=== PATIENT | female | born 2000 | race African-American/Black ===

== ENCOUNTER 2021-08-20 07:12 | Emergency (ER) | payer BC, SELFPAY ==
--- NOTE | ~2021-08-20 | CT_ITS ---
EXAMINATION: CTA chest PE abdomen pel DATE: 08/20/2021 09:18 INDICATION: Chest pain. Fever. Elevated d-dimer. TECHNIQUE: Computed tomography angiography (CTA) of the chest was performed with 100 mL Omnipaque-350 intravenous contrast timed to evaluate the pulmonary arteries. Coronal maximum intensity projection 3D-reconstructions were created by the technologist. Automated exposure control and iterative reconst ruction technique were employed. Exam dose: 1562.98 mGy-cm total exam DLP. COMPARISON: 08/20/2021 portable AP chest FINDINGS: There is diagnostic contrast enhancement of the pulmonary arteries and no evidence of pulmo nary embolism. No thoracic aortic aneurysm or dissection. No hilar or mediastinal mass lesion or lymphadenopathy. Heart size is within normal limits. No pericardial or pleural effusion. No pulmonary infiltrate or consolidation or pulmonary mass lesion. Included skeletal structures are unremarkable. IMPRESSION: Negative examination Reviewed, dictated and finalized at [facility]. Reviewed, dictated and finalized at location B. IMPRESSION: Negative examination
--- NOTE | ~2021-08-20 | XR_ITS ---
EXAMINATION: XR chest 1V portable EXAM DATE: 08/20/2021 07:58 INDICATION: Fever, headache, bodyaches. TECHNIQUE: Portable AP frontal chest x-ray was obtained. There is no prior study for comparison. FINDINGS: The lungs are clear. There are no pleural effusions. Cardiac silhouette is prominent for age but magnified on this AP technique. There is no pneumothorax suspected. The bones and soft tis sues are unremarkable. IMPRESSION: No acute cardiopulmonary findings. Reviewed, dictated and finalized at location A.
--- NOTE | ~2021-08-20 | US_ITS ---
EXAMINATION: US pelvic complete w TV EXAM DATE: 08/20/2021 11:43 INDICATION: Right adnexal pain rt adnexal pain. TECHNIQUE: Pelvic transabdominal and transvaginal sonogram was performed. There are multiple graysca le and Doppler images available for interpretation. Correlation is made to CT abdomen pelvis earlier same date. FINDINGS: Uterus measures 11.2 x 6.9 x 6.2 cm, with IUD located within the endometrial canal in the lower uterine segment. Endometrial stripe measures 7 mm, within normal limits. There is small free p elvic fluid. Right adnexa: The ovary measures 5.8 x 4.6 x 2.8 cm, with anechoic lesion consistent with the dominan t follicle measuring 3 cm. Ovarian vascular flow confirmed. Left adnexa: The ovary measures 3.4 x 3.4 x 1.8 cm and is morphologically normal. Ovarian vascular fl ow confirmed. IMPRESSION: 1. IUD in the lower uterine segment of endometrial canal. 2. Right ovarian anechoic lesion likely the dominant follicle. Low resistance arterial flow confirme d. Reviewed, dictated and finalized at location A. IMPRESSION: 1. IUD in the lower uterine segment of endometrial canal. 2. Right ovarian anechoic lesion likely the dominant follicle. Low resistance arterial flow confirmed.
[2021-08-20 07:20] VITALS: BP 135/93; PULSE 106; RESP 31; TEMP 37.2; O2SAT 99
--- NOTE | 2021-08-20 07:52 | ED.FEVER ---
HPI - Fever General Chief Complaint: Fever Stated Complaint: chills/hoffman/fever Time Seen by Provider: 08/20/21 07:23 Source: patient and RN notes reviewed Mode of arrival: ambulatory Limitations: no limitations History of Present Illness HPI Narrative: This is a 20 year old female who presents for evaluation of fever. Patient states last night she developed fever, chills, body aches , sore throat and headache. She had fever 101.7 at home. She has been taking Tylenol for her fever. She denies sick contacts. She denies nausea, vomiting, diarrhea, urinary symptoms, cough or shortness of breath. She had a c section 6 weeks ago . She denies drainage from her incision. She states she is having lower abdominal pain that is worse on her right side for 1 week. She denies abnormal vaginal discharge or odor. She is currently on her menstrual cycle She has not been vaccinated for covid. MD elicited complaint: fever Related Data Allergies Allergy/AdvReac Type Severity Reaction Status Date / Time No Known Allergies Allergy Unverified 08/18/17 09:57 Review of Systems Review of Systems: All systems reviewed & are unremarkable except as noted in HPI and below Constitutional: Constitutional: Reports chills and Reports fever(s) ENT: Reports sore throat Cardiovascular: Cardiovascular: Denies chest pain and Denies rapid heart rate Respiratory: Respiratory: Denies cough and Denies dyspnea Gastrointestinal: Gastrointestinal: Reports abdominal pain, Denies diarrhea, Reports nausea and Denies vomiting Genitourinary: Genitourinary: Denies nocturia, Denies dysuria and Denies flank pain Neurologic: Reports headache(s) [facility] Past Medical History Medical History (Updated 08/20/21 @ 12:39 by Samantha Quiroz MD) Patient denies medical problems Surgical History Surgical History (Updated 08/20/21 @ 07:53 by Samantha Quiorz MD) H/O section Exam Const: General: no acute distress and alert Orientation/consciousness: patient oriented x3 HENMT: Head: normocephalic and atraumatic Ears: hearing grossly normal bilaterally and TM's normal bilaterally Face and sinus: face symmetric Mouth: Yes Normal oral and palatal mucosa present, Yes lip normal, Yes oropharynx normal and Yes moist mucous membranes Throat: uvula midline and abnormal tonsil bilateral hypertrophy Eyes: Pupils: Equal, round and reactive pupils present EOM: EOMs intact bilaterally Neck: Neck: normal visual inspection, no lymphadenopathy and no meningeal signs Chest: Chest palpation & inspection: normal inspection of the chest Resp: Effort & Inspection: normal respiratory effort and no retractions Auscultation: clear to auscultation bilaterally Cardio: Rate: tachycardic Rhythm: regular rhythm Heart sounds: no murmurs Peripheral pulses: Peripheral pulses 2+ throughout GI: GI Palp: Yes Soft to palpation, Yes Tenderness to palpation present (GI) and No Guarding due to palpation present (GI) Auscultation: normal bowel sounds Other: low transverse c section incision that is healed, no drainage, no erthema, no opening Skin: General skin exam: normal color Rashes: no rashes Neuro: General: patient oriented x3, moves all extremities and CN's II-XI intact bilaterally Gait exam (Neuro): Normal gait present Extrem: General: normal to inspection Psych: Mental Status: mental status grossly normal Affect: normal affect Course Reevaluation(s) Reevaluation #1: PAtient states she feels better. Her headache resolved. I doubt she has bacterial meningitis. She has not signs of menigmus. She also denies malodorous vaginal discharge to suggest endometritis. She was found to have UTI so will start on antibiotics. She is also pending COVID results. Date: 08/20/21 Time: 12:33 Vital Signs Vital signs: Vital Signs Temperature 99.0 F 08/20/21 07:20 Pulse Rate 106 H 08/20/21 07:20 Respiratory Rate 31 H 08/20/21 07:20 Blood Pressure 135/9
[2021-08-20] MEDS: SODIUM CHLORIDE 0.9% IV 1,000 ML 999 ML IV CONT (08:08)
[2021-08-20] MEDS: KETOROLAC 30 MG/ML VIAL (*BKC) IV PUSH (08:08)
[2021-08-20 08:15] LABS: Basophils Absolute Auto 0.1 K/mm3 (0.0-0.1); Basophils Percent Auto 0.4 % (0.2-1.2); Eosinophils Absolute Auto 0.1 K/mm3 (0-0.3); Eosinophils Percent Auto 0.4 % (0-4.4); Hematocrit 33.9 % (37.0-47.0); Hemoglobin 10.9 g/dL (12.0-15.0); Immature Granulocyte Absolute 0.07 K/mm3 (0.00-0.031); Immature Granulocyte Percent A 0.5 % (0-0.5); Immature Platelet Fraction Pct 5.2 % (0.9-11.2); Lymphocytes Absolute Auto 0.84 K/mm3 (0.9-3.2); Mean Corpuscular HGB Conc 32.2 g/dl (32-36); Mean Corpuscular Hemoglobin 24.4 pg (26-34); Mean Corpuscular Volume 75.8 fl (80-100); Mean Platelet Volume 11.2 fl (7.4-10.4); Monocytes Absolute Auto 0.6 K/mm3 (0.1-0.6); Monocytes Percent Auto 4.4 % (2.6-8.5); Neutrophils Absolute Auto 12.4 K/mm3 (1.3-6.7); Neutrophils Percent Auto 88.3 % (45.5-73.1); Platelet Count Result 283 k/mm3 (150-375); Red Blood Count 4.47 M/mm3 (4.2-5.4); Red Cell Distribution Width 17.2 % (11.5-14.5)
--- NOTE | 2021-08-20 08:16 | PC.NURSE ---
isabell, Neal jacob
[2021-08-20 08:30] LABS: Alanine Aminotransferase 22 U/L (4-35); Alkaline Phosphatase 130 U/L (38-126); Anion Gap 12 mmol/L (8-16); Aspartate Amino Transferase 24 U/L (14-36); Bilirubin,Total 0.6 mg/dL (0.2-1.3); Blood Urea Nitrogen 12 mg/dL (7-17); CRP 3.1 mg/dL (<1.0); Calcium 9.5 mg/dL (8.4-10.2); Carbon Dioxide 24 mmol/L (22-30); Chloride 103 mmol/L (98-107); Estimated CRCL calculation 103 ml/min; Estimated Glomerular Filt Rate > 60; Glucose 125 mg/dL (65-110); Potassium 3.9 mmol/L (3.4-5.0); Sodium 139 mmol/L (137-145)
[2021-08-20 08:35] LABS: D Dimer 1.19 ug/mL (<0.48)
[2021-08-20 08:37] LABS: Add Urine Microscopic? YES; Appearance Urine Cloudy (Clear); Bacteria Urine Trace /hpf; Bilirubin Urine Negative (Negative); Blood Urine 3+ (Negative); Color Urine Yellow (Yellow); Glucose Urine UA Negative (Negative); Ketones Urine Negative (Negative); Leukocyte Esterase Ur 1+ LEU/UL (Negative); Nitrate Urine Negative (Negative); Protein Urine 1+ mg/dL (Negative); RBC Urine >75 /hpf (0-2); Specific Grav Ur 1.018 (1.001-1.035); Squamous Epithelial Cell Urine Few /hpf (Few); Urobilinogen Urine Negative mg/dL (<2.0); WBC Urine 51-75 /hpf
[2021-08-20 08:48] VITALS: PULSE 84; RESP 23; O2SAT 100
[2021-08-20 09:28] VITALS: BP 121/98; PULSE 90; RESP 17; O2SAT 100
[2021-08-20 12:54] VITALS: BP 154/76; PULSE 74; RESP 18; O2SAT 100
[2021-08-20 16:22] LABS: SARS-CoV-2 RNA PCR Negative
--- NOTE | 2021-08-29 07:30 | PC.NURSE ---
LATE ENTRY This note is being entered to document information to the patient's record. The following information was omitted on [08/20/21], by [Vida Connolly RN. Stop time of ceft documented at 1304.].
== END 2021-08-20 12:56 | disposition home or self-care (01) ==
PROVIDERS: Emergency Provider General Practice
DX: N39.0 Urinary tract infection, site not specified (principal); R50.9 Fever, unspecified; N83.201 Unspecified ovarian cyst, right side; Z20.822 Contact with and (suspected) exposure to COVID-19; Z97.5 Presence of (intrauterine) contraceptive device; N85.2 Hypertrophy of uterus
CPT/HCPCS: 36415; 71045; 71275; 74177; 76830; 76856; 80053; 81001; 81025; 83605; 85025; 85055; 85380; 85610; 85730; 86140; 87077; 87081; 87086; 87186; 87804; 87880; 96361; 96365; 99284; C9803; J0696; J1885; J7030; Q9967; U0003; U0005

== ENCOUNTER 2022-05-22 10:19 | Emergency (ER) | payer OTHER, SELFPAY ==
--- NOTE | ~2022-05-22 | CT_ITS ---
EXAMINATION: CT abdomen pelvis w con DATE: 05/22/2022 13:20 INDICATION: Lower abdominal pain, nausea, vomiting and diarrhea. Leukocytosis. TECHNIQUE: Computed tomography (CT) of the abdomen and pelvis was performed with 100 mL Omnipaque-300 intravenous contrast. Automated exposure control and iterative reconstruction technique were employe d. The dose-length product was 866.69 mGy-cm. COMPARISON: 08/20/2021 FINDINGS: Mild dependent atelectasis in the bilateral lower lobes. Heart size is normal. No pericardial or pleu ral effusion. Liver, gallbladder, spleen, pancreas, bilateral adrenal glands and kidneys are normal. Bladder, anteverted uterus and bilateral adnexa are unremarkable. Bowels including the appendix are n ormal. Minimal likely physiologic free fluid in the cul-de-sac. No abscess or free intraperitoneal ga s. Small fat-containing supraumbilical ventral hernia. IMPRESSION: 1. Small amount of likely physiologic free fluid in the cul-de-sac. No acute intra-abdominal/pelvic p rocess. Reviewed, dictated and finalized at location B. IMPRESSION: 1. Small amount of likely physiologic free fluid in the cul-de-sac. No acute in tra-abdominal/pelvic process.
[2022-05-22 10:21] VITALS: BP 163/75; PULSE 105; RESP 19; TEMP 37.2; O2SAT 100
--- NOTE | 2022-05-22 11:25 | ED.URI ---
HPI - URI/Sore Throat General Chief Complaint: Upper Respiratory Infection Stated Complaint: fever, WINTER, congestion, sore throat Time Seen by Provider: 05/22/22 10:32 Source: patient Mode of arrival: ambulatory Limitations: no limitations History of Present Illness HPI Narrative: Patient is a 21-year-old female who presents the ED with multiple complaints. Patient reports she has not felt well since yesterday morning. She has had diffuse myalgias, worse in her lower back. No numbness/tingling, weakness, incontinence, retention. She also reports having headache, congestion, sore throat, N/V/D, chills and fever up to 102 degrees this morning. She took Tylenol last night and around 9 am this morning with relief of fever. Still reporting myalgias. No significant abdominal pain. No cough, CP, SOB. No urinary symptoms. Patient did have IUD removed [address] Faremr. Denying vaginal bleeding. Related Data Allergies Allergy/AdvReac Type Severity Reaction Status Date / Time No Known Allergies Allergy Verified 05/20/22 14:56 Review of Systems Review of Systems: CONSTITUTIONAL: Reports fever, chills, or sweats. ENT: Reports rhinorrhea, congestion, sore throat. CARDIOVASCULAR: Denies chest pain. RESPIRATORY: Denies cough or dyspnea. GASTROINTESTINAL: Reports N/V/D. Denies abdominal pain, incontinence. GENITOURINARY: Denies dysuria, incontinence, retention, or hematuria. MUSCULOSKELETAL: Reports myalgias/low back pain. NEUROLOGIC: Reports WINTER. Denies numbness, tingling, or weakness. All systems reviewed & are unremarkable except as noted in HPI and below PMFSH Past Medical History Medical History History of chlamydia Patient denies medical problems Surgical History Surgical History H/O section Family History Family History Other Cerebrovascular accident Diabetes mellitus Heart disease Hypertension Thyroid disorder Social History Social History Smoking status: Current every day smoker Tobacco type: e-cigarettes/vaping Alcohol intake: current Substance use: current Substance use type: marijuana Exam Narrative: GENERAL: Well appearing, well-nourished, non-toxic, in mild acute distress. HEAD: Normocephalic, atraumatic. EYES: PERRL/EOMI, conjunctivae clear bilaterally. THROAT: Pharynx clear, no exudate. Minimal posterior erythema. MMs moist. NECK: Supple. No adenopathy, no masses. RESPIRATORY: Airway patent, respirations nonlabored. Clear to auscultation bilaterally, no rales, rhonchi, wheezing. CARDIOVASCULAR: Regular rate and rhythm without murmurs, rubs, or gallops. Peripheral pulses 2+ and equal bilaterally. ABDOMINAL: Soft, mild lower abdominal tenderness, nondistended, no hepatosplenomegaly. Normoactive BS. MUSCULOSKELETAL: Moves all extremities. Strength/ROM intact without gross deformities. Diffuse paraspinal muscle tenderness in lumbar region. No midline lumbar spinal tenderness. SKIN: Warm, dry, normal color. No rashes. NEURO: A&O X3. Speech clear. Cranial nerves II-XII grossly intact. Steady gait. No ataxic movements. PSYCHIATRIC: Appropriate mood and affect. Normal interaction. Course Vital Signs Vital signs: Vital Signs Temperature 98.9 F 05/22/22 10:21 Pulse Rate 105 H 05/22/22 10:21 Respiratory Rate 19 05/22/22 10:21 Blood Pressure 163/75 H 05/22/22 10:21 Pulse Oximetry 100 05/22/22 10:21 Temperature 98.9 F 05/22/22 10:21 Pulse Rate 89 05/22/22 15:38 Respiratory Rate 14 05/22/22 15:38 Blood Pressure 158/72 H 05/22/22 15:38 Pulse Oximetry 98 05/22/22 15:38 Oxygen Delivery Room Air 05/22/22 11:16 MDM - URI/Sore Throat MDM Narrative Medical decision making narrative: Patient presented to ED with multiple upper respi
[2022-05-22 11:30] LABS: Influenza A QL RT-PCR Negative (Negative); Influenza B QL RT-PCR Negative (Negative); SARS-CoV-2 RNA PCR Negative
[2022-05-22 11:40] LABS: Basophils Absolute Auto 0.1 K/mm3 (0.0-0.1); Basophils Percent Auto 0.4 % (0.2-1.2); Eosinophils Percent Auto 0.2 % (0-4.4); Hematocrit 33.3 % (37.0-47.0); Hemoglobin 11.3 g/dL (12.0-15.0); Immature Granulocyte Absolute 0.08 K/mm3 (0.00-0.031); Immature Granulocyte Percent A 0.5 % (0-0.5); Lymphocytes Absolute Auto 1.13 K/mm3 (0.9-3.2); Lymphocytes Percent Auto 7.5 % (18.3-44.2); Mean Corpuscular HGB Conc 33.9 g/dl (32-36); Mean Corpuscular Hemoglobin 25.6 pg (26-34); Mean Corpuscular Volume 75.3 fl (80-100); Mean Platelet Volume 11.3 fl (7.4-10.4); Monocytes Absolute Auto 0.8 K/mm3 (0.1-0.6); Neutrophils Percent Auto 86.4 % (45.5-73.1); Platelet Count Result 301 k/mm3 (150-375); Red Blood Count 4.42 M/mm3 (4.2-5.4); Red Cell Distribution Width 15.6 % (11.5-14.5); White Blood Count 15.1 K/mm3 (4.5-10.0)
[2022-05-22 11:48] LABS: Appearance Urine Clear (Clear); Bilirubin Urine Negative (Negative); Blood Urine 3+ (Negative); Color Urine Yellow (Yellow); Glucose Urine UA Negative (Negative); Ketones Urine Negative (Negative); Leukocyte Esterase Ur Negative LEU/UL (Negative); Nitrate Urine Negative (Negative); Protein Urine Negative (Negative); Specific Grav Ur 1.015 (1.001-1.035); Urobilinogen Urine 0.2 mg/dL (<2.0)
[2022-05-22] MEDS: SODIUM CHLORIDE 0.9% IV 1,000 ML 999 ML IV CONT (11:48)
[2022-05-22] MEDS: ONDANSETRON INJ 4 MG/2 ML VIAL IV PUSH (11:48)
[2022-05-22] MEDS: KETOROLAC 30 MG/ML VIAL (*BKC) IV PUSH (11:49)
[2022-05-22 11:56] LABS: Add Urine Microscopic? YES
[2022-05-22 11:59] LABS: Alanine Aminotransferase 30 U/L (6-35); Albumin Level 4.7 g/dL (3.5-5.1); Alkaline Phosphatase 97 U/L (38-126); Anion Gap 9 mmol/L (8-16); Aspartate Amino Transferase 23 U/L (14-36); Bilirubin,Total 0.7 mg/dL (0.2-1.3); Blood Urea Nitrogen 6 mg/dL (7-17); Calcium 9.1 mg/dL (8.4-10.2); Carbon Dioxide 24 mmol/L (22-30); Chloride 104 mmol/L (98-107); Estimated CRCL calculation 106 ml/min; Estimated Glomerular Filt Rate > 60; Glucose 105 mg/dL (65-110); Potassium 3.7 mmol/L (3.4-5.0); Sodium 137 mmol/L (137-145)
[2022-05-22 12:14] LABS: Bacteria Urine 1+ /hpf; Mucus Urine Rare /lpf; RBC Urine 0-2 /hpf (0-2); Squamous Epithelial Cell Urine Moderate /hpf (Few)
[2022-05-22 12:44] LABS: Pregnancy On Board Control Positive; Urine Pregnancy Test Negative
[2022-05-22 14:30] VITALS: BP 160/60; PULSE 99; RESP 18; O2SAT 100
[2022-05-22 15:08] LABS: Magnesium 1.7 mg/dL (1.6-2.3)
[2022-05-22 15:38] VITALS: BP 158/72; PULSE 89; RESP 14; O2SAT 98
== END 2022-05-22 15:51 | disposition home or self-care (01) ==
PROVIDERS: Physician Assistant; Emergency Provider Emergency Medicine; PCP Obstetrics & Gynecology
DX: B34.9 Viral infection, unspecified (principal); M79.10 Myalgia, unspecified site; R82.71 Bacteriuria; Z20.822 Contact with and (suspected) exposure to COVID-19; F17.290 Nicotine dependence, other tobacco product, uncomplicated
CPT/HCPCS: 36415; 74177; 80053; 81001; 81025; 83735; 85025; 87077; 87086; 87088; 87186; 87502; 96361; 96374; 96375; 99284; C9803; J0131; J1885; J2405; J7030; Q9967; U0003; U0005

== ENCOUNTER 2023-10-16 21:39 | Emergency (ER) | payer OTHER, SELFPAY ==
--- NOTE | ~2023-10-16 | XR_ITS ---
EXAMINATION: XR ankle RT min 3V DATE: 10/16/2023 22:01 INDICATION: Right ankle injury and pain. TECHNIQUE: 3 views of right ankle were obtained. COMPARISON: None. FINDINGS: Bone alignment is normal. No fracture. Joint spaces are normal. There is an enthesophyte at posterior aspect of calcaneal tuberosity. IMPRESSION: 1. No fracture. Reviewed, dictated and finalized at location E. 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 No fracture.
[2023-10-16 21:49] VITALS: BP 170/80; PULSE 92; RESP 20; TEMP 36.4; O2SAT 100
--- NOTE | 2023-10-17 01:53 | ED.LOWEXIN ---
HPI - Extremity Injury (Lower) General Chief Complaint: Extremity Injury, Lower Stated Complaint: fall, right ankle pain Time Seen by Provider: 10/17/23 01:46 Source: patient Mode of arrival: ambulatory Limitations: no limitations History of Present Illness HPI Narrative: Patient is a 23-year-old female who presents to ED with report of right ankle pain. Patient reports she was at work and stepped into a ditch. She is unsure of her right ankle rolled inward or outward, but complains of pain and swelling to her right medial ankle since then. She has been able to ambulate, but has discomfort with this. Denies numbness or tingling. She has not taken anything for the pain. No other injuries. Related Data Allergies Allergy/AdvReac Type Severity Reaction Status Date / Time No Known Allergies Allergy Verified 10/17/23 01:54 Review of Systems Review of Systems: CONSTITUTIONAL: Denies fever, chills, or sweats. MUSCULOSKELETAL: see HPI. NEUROLOGIC: Denies Tingling, numbness, or weakness. All systems reviewed & are unremarkable except as noted in HPI and below PMFSH Past Medical History Medical History History of chlamydia Patient denies medical problems Surgical History Surgical History H/O section Family History Family History Other Cerebrovascular accident Diabetes mellitus Heart disease Hypertension Thyroid disorder Social History Social History Smoking status: Current every day smoker Tobacco type: e-cigarettes/vaping Alcohol intake: current Substance use: current Substance use type: marijuana Exam Narrative: GENERAL: Well appearing, Morbidly obese with BMI 42.9, non-toxic, in no acute distress. HEAD: Normocephalic, atraumatic. NECK: Supple. No adenopathy, no masses. RESPIRATORY: Airway patent, respirations nonlabored. CARDIOVASCULAR: Regular rate and rhythm without murmurs, rubs, or gallops. pedal pulses 2+ and equal bilaterally. MUSCULOSKELETAL: Moves all extremities. Strength/ROM intact without gross deformities. mild swelling and tenderness to palpation over anteromedial right ankle/anterior foot. Sensation intact. Capillary refill intact. SKIN: Warm, dry, normal color. No rashes. NEURO: A&O X3. Speech clear. Cranial nerves II-XII grossly intact. Mildly antalgic gait. No ataxic movements. PSYCHIATRIC: Appropriate mood and affect. Normal interaction. Course Vital Signs Vital signs: Vital Signs Temperature 97.6 F 10/16/23 21:49 Pulse Rate 92 10/16/23 21:49 Respiratory Rate 20 10/16/23 21:49 Blood Pressure 170/80 H 10/16/23 21:49 Pulse Oximetry 100 10/16/23 21:49 Temperature 97.8 F 10/17/23 01:54 Pulse Rate 94 10/17/23 01:54 Respiratory Rate 17 10/17/23 01:54 Blood Pressure 137/66 10/17/23 01:54 Pulse Oximetry 100 10/17/23 01:54 MDM - Extremity Injury (Lower) MDM Narrative Medical decision making narrative: Patient?s injury is consistent with musculoskeletal etiology. No signs of neurologic or vascular compromise on physical examination. Compartments are soft without signs of compartment syndrome. XR without evidence of fracture. Pain is consistent with exam and injury. Patient is felt to be stable for discharge home and further outpatient management and treatment. discussed rice treatment, Quique bandage, return precautions. D/C in stable condition. Medical Records Attestation: I reviewed the patient's medical records. Imaging Data Attestation: I personally reviewed and interpreted this imaging study as follows: Radiologist's impression: ITS Impressions Ankle X-Ray 10/16/23 22:01 IMPRESSION: 1. No fracture. Discharge Plan Discharge Clinical I
[2023-10-17 01:54] VITALS: BP 137/66; PULSE 94; RESP 17; TEMP 36.6; O2SAT 100
[2023-10-17] MEDS: IBUPROFEN 600 MG TABLET PO (01:59)
== END 2023-10-17 02:05 | disposition home or self-care (01) ==
LOC: ANHED 10-17 01:56
PROVIDERS: Emergency Provider Physician Assistant; PCP Obstetrics & Gynecology
DX: S93.401A Sprain of unspecified ligament of right ankle, initial encounter (principal); X50.9XXA Other and unspecified overexertion or strenuous movements or postures, initial encounter; F17.290 Nicotine dependence, other tobacco product, uncomplicated
CPT/HCPCS: 73610; 99283; A9270

== ENCOUNTER 2024-03-03 17:44 | Emergency (ER) | payer OTHER, SELFPAY ==
--- NOTE | ~2024-03-03 | XR_ITS ---
EXAMINATION: XR foot LT min 3V DATE: 03/03/2024 18:32 INDICATION: Left foot pain. TECHNIQUE: 4 views of left foot were obtained. COMPARISON: None. FINDINGS: Bone alignment is normal. No fracture. There is mild osteoarthritis of talonavicular joint. There are dystrophic calcifications lateral to head of fifth metatarsal. IMPRESSION: 1. No fracture. Reviewed, dictated and finalized at location E. IMPRESSION: 1. No fracture.
--- NOTE | 2024-03-03 18:06 | ED.EXTPRO ---
HPI - Extremity Problem General Chief complaint: Extremity Problem,Nontraumatic Stated complaint: Left foot swelling Time Seen by Provider: 03/03/24 18:05 Source: patient Mode of arrival: ambulatory Limitations: no limitations History of Present Illness HPI Narrative: Per is a 23-year-old female patient presenting to the clinic today with complaints of left foot swelling and pain over the left 5th metatarsal that is been going on for 1 week. Reports she has had some numbness and tingling in the area and is very tender when her shoe touches over the metatarsal. Related Data Home Medications Medication Instructions Recorded Confirmed No Home Medications 03/03/24 03/03/24 Allergies Allergy/AdvReac Type Severity Reaction Status Date / Time No Known Allergies Allergy Verified 03/03/24 18:11 Review of Systems Review of Systems: Pertinent positives per HPI. Patient denies any fever, chills, rash, headache, visual changes, dizziness, cough, runny nose, sore throat, shortness of breath, chest pain, palpitations, nausea, vomiting, diarrhea, constipation, abdominal pain, or any urinary issues. PMFSH Past Medical History Medical History History of chlamydia Patient denies medical problems Surgical History Surgical History H/O section Family History Family History Other Cerebrovascular accident Diabetes mellitus Heart disease Hypertension Thyroid disorder Social History Social History Smoking status: Current every day smoker Tobacco type: e-cigarettes/vaping Alcohol intake: current Substance use: current Substance use type: marijuana Comments At the time of my signature, I reviewed and agree with the nursing past medical, surgical, social, and family history. There is no relevant family history pertinent to the patient complaint. Exam Narrative: General: Well-developed, well nourished, in no apparent distress Head: Normocephalic, atraumatic. Cardio: Regular rate and rhythm, s1 and s2 normal, no murmur appreciated. Resp: Clear to auscultation bilaterally, no rhonchi, rales, wheezing or rubs. Musculoskeletal: No deformity, tender to palpation over the left 5th metatarsal, grossly normal range of motion, mild pain with valgus and varus testing over the left metatarsal, mild pain with dorsal flexion but no pain with plantar flexion, muscle strength strong and equal, peripheral pulse strong, no edema, no cyanosis, normal gait and station Course Course Emergency Course: Portions of this record may have been created with voice recognition software. Level of Care: Express Care Visit Vital Signs Vital signs: Vital Signs Temperature 36.6 C 03/03/24 18:14 Pulse Rate 73 03/03/24 18:14 Respiratory Rate 18 03/03/24 18:14 Blood Pressure 122/70 03/03/24 18:14 Pulse Oximetry 100 03/03/24 18:14 Oxygen Delivery Room Air 03/03/24 18:14 Temperature 36.6 C 03/03/24 18:14 Pulse Rate 73 03/03/24 18:14 Respiratory Rate 18 03/03/24 18:14 Blood Pressure 122/70 03/03/24 18:14 Pulse Oximetry 100 03/03/24 18:14 Oxygen Delivery Room Air 03/03/24 18:14 Vital signs reviewed MDM - Extremity (Nontraumatic) MDM Narrative Medical decision making narrative: At the time of visit patient is resting comfortably on the exam table. Patient appears to be nontoxic. Diagnostics: X-rays negative for any fracture however does show some dystrophic calcification over the left 5th metatarsal Plan: I suspect patient has pain over the metatarsal possibly due to arthritic calcification. Supportive measures were discussed with the patient and they voiced understanding discharge instructions and agrees to treatment plan. Return
[2024-03-03 18:14] VITALS: BP 122/70; PULSE 73; RESP 18; TEMP 36.6; O2SAT 100
== END 2024-03-03 18:45 | disposition home or self-care (01) ==
PROVIDERS: Emergency Provider Nurse Practitioner Family
DX: M79.672 Pain in left foot (principal); F17.290 Nicotine dependence, other tobacco product, uncomplicated; F12.90 Cannabis use, unspecified, uncomplicated
CPT/HCPCS: 73630; 99213; G0463

== ENCOUNTER 2024-10-12 08:41 | Emergency (ER) | payer OTHER, SELFPAY ==
[2024-10-12 08:54] VITALS: BP 144/74; PULSE 86; RESP 16; TEMP 36.9; O2SAT 100
--- NOTE | 2024-10-12 09:05 | ED.URI ---
HPI - URI/Sore Throat General Chief Complaint: Upper Respiratory Infection Stated Complaint: SORE THROAT Time Seen by Provider: 10/12/24 09:05 History of Present Illness HPI Narrative: 24 y/o female presented for c/o sore throat, and reports left swollen tonsil with a white spot. Pain is worse on the left. onset 2 days. Denies cough, nasal congestion, n/v/d/f/c. Related Data Allergies Allergy/AdvReac Type Severity Reaction Status Date / Time No Known Allergies Allergy Verified 10/12/24 09:09 Review of Systems Review of Systems: CONSTITUTIONAL: Denies body aches, fever, chills, or sweats. EYES: Denies visual changes, redness, or discharge. ENT: Reports sore throat Denies rhinorrhea, congestion, or otalgia. CARDIOVASCULAR: Denies chest pain, palpitations, or edema. RESPIRATORY: Denies dyspnea. MUSCULOSKELETAL: Denies back pain, joint pain, or myalgia. NEUROLOGIC: Denies headache PMFSH Past Medical History Medical History History of chlamydia Patient denies medical problems Surgical History Surgical History H/O section Family History Family History Other Cerebrovascular accident Diabetes mellitus Heart disease Hypertension Thyroid disorder Social History Social History Smoking status: Current every day smoker Tobacco type: e-cigarettes/vaping Alcohol intake: current Substance use: current Substance use type: marijuana Exam Narrative: GENERAL: well-appearing, no acute distress. EYES: conjunctivae clear ENT: Mucous membranes moist. TMs pearly luna with normal light reflex bilaterally; no tragal tenderness. Oropharynx erythematous without lesions. Tonsils enlarged 1+, one white spot to left tonsil. No drooling, no hoarseness, no trismus, uvula midline. No tripod positioning, hot potato voice, or soft palate swelling. NECK: Supple. No lymphadenopathy CHEST: Clear to auscultation, breath sounds equal. No respiratory distress, speaks in full sentences. HEART: Regular rate and rhythm. No murmur heard. SKIN: Warm, dry, no rash. NEURO: Alert and oriented x3. Course Course Emergency Course: Patient is aware of diagnosis, understands and agrees to treatment plan. Anticipatory guidance given. Patient agrees to follow-up as directed and is aware of reasons to seek care at the emergency department. Portions of this record may have been created with voice recognition software Level of Care: Express Care Visit Vital Signs Vital signs: Vital Signs Temperature 98.4 F 10/12/24 08:54 Pulse Rate 86 10/12/24 08:54 Respiratory Rate 16 10/12/24 08:54 Blood Pressure 144/74 H 10/12/24 08:54 Pulse Oximetry 100 10/12/24 08:54 Temperature 98.4 F 10/12/24 08:54 Pulse Rate 86 10/12/24 08:54 Respiratory Rate 16 10/12/24 08:54 Blood Pressure 144/74 H 10/12/24 08:54 Pulse Oximetry 100 10/12/24 08:54 MDM - URI/Sore Throat MDM Narrative Medical decision making narrative: neg strep result reviewed with pt. Advise supportive treatments. Patient is appropriate for outpatient treatment and follow-up. Differential Diagnosis Differential diagnosis: Likely upper respiratory infection, viral infection and pharyngitis Discharge Plan Discharge Clinical Impression: Pharyngitis Patient Disposition: Home, Self-Care Condition: Stable Instructions: Antibiotic Form, Strep Throat (ED) Additional Instructions: - Take the antibiotic as directed. Fever and sore throat typically resolve within one to three days. Most patients can return to work, after 12 to 24 hours of antibiotic therapy, provided you are fever free and otherwise well. -Eat and drink things that are easy to swallow, like soft foods, cool liquids, tea with honey, or popsicles . -Salt water gargles and/or may use topical anesthetic ( Chloraseptic spray) or lozenges to relieve dryness or throat pain -Alternate Tylenol and ibuprofen as needed for pain and fever as directed. -Frequent hand washing or hand oracle application architect is one of the best ways to prevent spread of infection. Throw away the toothbrush after 24hours of antibiotic. -Follow up with primary care provider in 2-3 days if condition is not improving -Go to the ER if you have trouble breathing, cannot drink enough fluids, have muffled voice or drooling, difficulty opening your mouth, or severe swelling. Prescriptions: New amoxicillin 500 mg tablet 1,000 mg PO DAILY 10 Days Qty: 20 0RF No Action levonorgestrel-ethinyl estrad [Lutera (28)] 0.1-20 mg-mcg tablet 1 tablet PO DAILY Qty: 84 0RF Follow-up/Referrals: PHYSICIAN,CONTINUOUS LOFT OPERATOR [Primary Care Provider] - Time of Disposition: 09:16
[2024-10-12 09:12] LABS: EDSTREPNEGPOS1 Negative (Negative)
== END 2024-10-12 09:35 | disposition home or self-care (01) ==
PROVIDERS: Emergency Provider Nurse Practitioner Family
DX: J02.9 Acute pharyngitis, unspecified (principal); F17.290 Nicotine dependence, other tobacco product, uncomplicated; F12.90 Cannabis use, unspecified, uncomplicated
CPT/HCPCS: 87081; 87880; 99213; G0463

== ENCOUNTER 2024-11-04 11:23 | Emergency (ER) | payer OTHER, SELFPAY ==
--- NOTE | ~2024-11-04 | CT_ITS ---
CT soft tissue neck w con Ordering provider: Hiren Candelaria PA-C History: 24 years Female with . dysphagia, swollen tonsils . Comparison: None. Technique: CT soft tissues neck was performed with contrast. . Automated exposure control and iterat owen reconstruction technique were employed. The dose-length product was 519.01 mGy-cm. 75 mL Omnipaqu e 350 was given IV. Findings: LOWER HEAD: The visualized brain parenchyma, optic globes/orbits and mastoids are normal. Bilateral ethmoid sinus disease. SALIVARY GLANDS: Normal. THYROID: Slightly enlarged. Small hypodensity in the left thyroid gland which measures 0.6 cm most li brad a cyst or nodule. SUPRAHYOID DEEP SPACES: Enlarged lymph node is seen in the left parapharyngeal area measuring 1.8 x 1.7 cm. Enlarged lymph no alysha are also seen in the right parapharyngeal space with the largest measures 1.3 x 1.5 cm. Slightly enlarged lymph nodes are seen in the posterior triangles with the largest measures 1.1 cm on the right side and 0.9 cm on the left.. CAROTID ARTERIES: Normal. JUGULAR VEINS: Normal. TONSILS: Bilaterally enlarged. No definite abscess formation. Follow-up advised. ORAL CAVITY: normal as visualized. PHARYNX, LARYNX AND TRACHEA: Patent and normal. soft tissue density in the nasopharyngeal area may be enlarged adenoids. Clinical evaluation advised. SUPERFICIAL SOFT TISSUES: Normal. No lymphadenopathy or neck mass. THORACIC INLET/VISUALIZED UPPER CHEST: Normal. SKELETAL: Normal spine. IMPRESSION: 1. Soft tissue density in the nasopharyngeal area which may be adenoids. Clinical evaluation advised . 2. Enlarged tonsils. 3. Bilateral enlarged lymph nodes in the parapharyngeal and posterior triangles. 4. Slightly enlarged thyroid gland with hypodensity in the left lobe of the thyroid. Reviewed, dictated and finalized at location A. TENDER IMPRESSION: 1. Soft tissue density in the nasopharyngeal area which may be adenoids. Clini marco evaluation advised. 2. Enlarged tonsils. 3. Bilateral enlarged lymph nodes in the parapharyngeal and posterior triangle s. 4. Slightly enlarged thyroid gland with hypodensity in the left lobe of the th yroid.
--- NOTE | ~2024-11-04 | XR_ITS ---
XR chest 1V Ordering provider: Hiren Candelaria History: 24 years Female with . cough, dyspnea . Comparison: August 20, 2021 FINDINGS: MEDIASTINUM: The cardiac silhouette is not enlarged. LUNGS: No infiltrates, effusions or pneumothorax. OTHER: No free air under the diaphragm. IMPRESSION: No acute cardiopulmonary pathology. Reviewed, dictated and finalized at location A. NESS RELATIONS MANAGER
[2024-11-04 12:16] VITALS: BP 159/70; PULSE 75; RESP 18; TEMP 36.4; O2SAT 100
--- NOTE | 2024-11-04 13:38 | ED_ITS ---
HPI - URI/Sore Throat General Chief Complaint: Upper Respiratory Infection <Hiren Candelaria PA-C - Last Filed: 11/04/24 14:20> Stated Complaint: Tonsils swollen, feeling short of breath-cough <Hiren Candelaria PA-C - Last Filed: 11/04/24 14:20> Time Seen by Provider: 11/04/24 22:13 <Hiren Candelaria PA-C - Last Filed: 11/04/24 14:20> Focused HPI: This is a 24-year-old female who presents to the ED for chief complaint of 3 weeks of increasing congestion and swollen tonsils. Reports that she was seen initially by urgent care and diagnosed clinically with pharyngitis, given amoxicillin which she took a full course of. States that since early October she has had continued tonsil swelling and now it feels more difficult to swallow. States at nighttime he can be more difficult to breathe due to the swelling. Also reports increasing cough and sinus congestion over the last couple of weeks. GENERAL: Well-appearing, well-nourished, and in no acute distress. HEAD: Normocephalic, atraumatic. CHEST: Clear to auscultation. No respiratory distress. HEART: Regular rate and rhythm. NEURO: Alert and oriented x3. Patient screened in triage and initial orders placed. Additional care and disposition to be based upon diagnostic testing and treatment. <Hiren Candelaria PA-C - Last Filed: 11/04/24 14:20> Source: patient <GEORGE Edwards Last Filed: 11/04/24 23:55> Mode of arrival: ambulatory <GEORGE Edwards Last Filed: 11/04/24 23:55> Limitations: no limitations <GEORGE Edwards Last Filed: 11/04/24 23:55> History of Present Illness HPI Narrative: Agree with above HPI. Denies fevers. Is able to keep down food and drink. <GEORGE Edwards Last Filed: 11/04/24 23:55> Related Data Allergies/Adverse Reactions: Allergies Allergy/AdvReac Type Severity Reaction Status Date / Time No Known Allergies Allergy Verified 10/12/24:09 <Hiren Candelaria PA-C - Last Filed: 11/04/24 14:20> Review of Systems 2 Review of Systems: All systems reviewed & are unremarkable except as noted in HPI. <Jyotsna Ojeda PA-C - Last Filed: 11/04/24 23:55> All systems reviewed & are unremarkable except as noted in HPI and below < Jyotsna Ojeda PA-C - Last Filed: 11/04/24 23:55> [facility] Past Medical History Medical History: Medical History History of chlamydia Patient denies medical problems <Hiren Candelaria PA-C - Last Filed: 11/04/24 14:20> Surgical History Surgical History: Surgical History H/O section <Hiren Candelaria PA-C - Last Filed: 11/04/24 14:20> Family History Family History: Family History Other Cerebrovascular accident Diabetes mellitus Heart disease Hypertension Thyroid disorder <Hiren Candelaria PA-C - Last Filed: 11/04/24 14:20> Social History Social History: Social History Smoking status: Current every day smoker Tobacco type: e-cigarettes/vaping Alcohol intake: current Substance use: current Substance use type: marijuana <Hiren Candelaria PA-C - Last Filed: 11/04/24 14:20> Exam 2 Narrative: GENERAL: Well appearing, morbidly obese with BMI of 41.0, non-toxic, in no acute distress. HEAD: Normocephalic, atraumatic. ENT: MMs moist. Mild posterior pharynx erythema. Very mild tonsillar hypertrophy bilaterally, symmetric. No uvular deviation. No protrusion of soft palate. No stridor or trismus. Tolerating secretions. NECK: Mild submandibular and anterior cervical chain lymphadenopathy. Minimally tender. No masses RESPIRATORY: Airway patent, respirations nonlabored. Clear to auscultation bilaterally, no rales, rhonchi, wheezing. CARDIOVASCULAR: Regular rate and rhythm without murmurs, rubs, or gallops. MUSCULOSKELETAL: Moves all extremities. No gross deformities. SKIN: Warm, dry, normal color. NEURO: A&O X3. Speech clear. PSYCHIATRIC: Appropriate mood and affect. Normal interaction. <GEORGE Edwards Last Filed: 11/04/24 23:55> Course Vital Signs Vital signs: Vital Signs Temperature 97.6 F 11/04/24 12:16 Pulse Rate 75 11/04/24 12:16 Respiratory Rate 18 11/04/24 12:16 Blood Pressure 159/70 H 11/04/24 12:16 Pulse Oximetry 100 11/04/24 12:16 Oxygen Delivery Room Air 11/04/24 12:16 Temperature 97.6 F 11/04/24 12:16 Pulse Rate 75 11/04/24 12:16 Respiratory Rate 18 11/04/24 12:16 Blood Pressure 159/70 H 11/04/24 12:16 Pulse Oximetry 100 11/04/24 12:16 Oxygen Delivery Room Air 11/04/24 12:16 <GEROGE Bennett Last Filed: 11/04/24 14:20> Vital Signs Temperature 97.6 F 11/04/24 12:16 Pulse Rate 75 11/04/24 12:16 Respiratory Rate 18 11/04/24 12:16 Blood Pressure 159/70 H 11/04/24 12:16 Pulse Oximetry 100 11/04/24 12:16 Oxygen Delivery Room Air 11/04/24 12:16 Temperature 97.6 F 11/04/24 12:16 Pulse Rate 75 11/04/24 12:16 Respiratory Rate 18 11/04/24 12:16 Blood Pressure 159/70 H 11/04/24 12:16 Pulse Oximetry 100 11/04/24 12:16 Oxygen Delivery Room Air 11/04/24 12:16 <GEORGE Edwards Last Filed: 11/04/24 23:55> MDM - URI/Sore Throat MDM Narrative Medical decision making narrative: Patient presented to ED with concern for sore throat, swollen tonsils, ongoing over the last 3 weeks, worsening over last 1 week. Vital signs are stable upon arrival. Patient is in no acute distress. No evidence of airway compromise or respiratory distress. No obvious evidence of TRANSCRIPTION on exam. Laboratory studies are fairly unremarkable. Mild anemia noted, consistent with previous records. CMP unremarkable. Tillman, influenza, RSV, COVID, strep testing negative. Chest x-ray is clear. CT soft tissue neck showing enlarged tonsils and adenoids, lymphadenopathy, no evidence of peritonsillar abscess. Patient given dose of Unasyn and Decadron in the ED. Will be discharged on clindamycin and Medrol Dosepak. Patient has previously been on amoxicillin within the last few weeks. Will be referred to ENT. Recommended follow-up with PCP. Given strict return precautions. She is in agreement with plan. Discharged in stable condition. <Jyotsna Ojeda PA-C - Last Filed: 11/04/24 23:55> Medical Records Attestation: I reviewed the patient's medical records. <Jyotsna Ojeda PA-C - Last Filed: 11/04/24 23:55> Lab Data Attestation: I reviewed the patient's lab results. <Jyotsna Ojeda PA-C - Last Filed: 11/04/24 23:55> Result diagrams: 11/04/24 18:23 11/04/24 18:23 <Hiren Candelaria PA-C - Last Filed: 11/04/24 14:20> Labs: Lab Results 11/04/24 Range/Units 18:23 WBC 8.2 (4.5-10.0) K/mm3 RBC 4.36 (4.2-5.4) M/mm3 Hgb 9.9 L (12.0-15.0) g/dL Hct 30.7 L (37.0-47.0) % MCV 70.4 L (80-100) fl MCH 22.7 L (26-34) pg MCHC 32.2 (32-36) g/dl RDW 18.0 H (11.5-14.5) % Plt Count 320 (150-375) k/mm3 MPV 11.4 H (7.4-10.4) fl Immature Gran % (Auto) 0.4 (0-0.5) % Neut % (Auto) 62.4 (45.5-73.1) % Lymph % (Auto) 28.2 (18.3-44.2) % Tillman % (Auto) 7.3 (2.6-8.5) % Eos % (Auto) 1.1 (0-4.4) % Baso % (Auto) 0.6 (0.2-1.2) % Lymph # (Auto) 2.31 (0.9-3.2) K/mm3 Tillman # (Auto) 0.6 (0.1-0.6) K/mm3 Eos # (Auto) 0.1 (0-0.3) K/mm3 Baso # (Auto) 0.1 (0.0-0.1) K/mm3 Abs Immat Gran (auto) 0.03 (0.00-0.031) K/mm3 Absolute Neuts (auto) 5.1 (1.3-6.7) K/mm3 Absolute Nucleated RBC 0.000 (0.0-0.012) K/mm3 Nucleated RBC % 0.0 (0.0-0.2) % Platelet Estimate Adequate (Adequate) Hypochromasia 1+ Anisocytosis 1+ Microcytosis 1+ (NORMAL) Schistocytes None seen Sodium 136 L (137-145) mmol/L Potassium 3.7 (3.4-5.0) mmol/L Chloride 105 (98-107) mmol/L Carbon Dioxide 26 (22-30) mmol/L Anion Gap 5 (4-12) mmol/L BUN 13 D (7-17) mg/dL Creatinine 0.80 (0.7-1.0) mg/dL Estim Creat Clear Calc 104 ml/min Estimated GFR > 60 (59 - ) Glucose 90 (65-110) mg/dL Calcium 9.2 (8.4-10.2) mg/dL Total Bilirubin 0.4 (0.2-1.3) mg/dL AST 26 (14-36) U/L ALT 28 (6-35) U/L Alkaline Phosphatase 74 (38-126) U/L Total Protein 9.0 H (6.3-8.2) g/dL Albumin 4.6 (3.5-5.1) g/dL Monoscreen Negative (Negative) Influenza A (RT-PCR) Negative (Negative) Influenza B (RT-PCR) Negative (Negative) RSV (RT-PCR) Negative (Negative) SARS-CoV-2 RNA (RT-PCR) Negative (Negative) Group A Strep (PCR) Not detected (Negative) <Hiren Candelaria PA-C - Last Filed: 11/04/24 14:20> Lab Results 11/04/24 Range/Units 18:23 WBC 8.2 (4.5-10.0) K/mm3 RBC 4.36 (4.2-5.4) M/mm3 Hgb 9.9 L (12.0-15.0) g/dL Hct 30.7 L (37.0-47.0) % MCV 70.4 L (80-100) fl MCH 22.7 L (26-34) pg MCHC 32.2 (32-36) g/dl RDW 18.0 H (11.5-14.5) % Plt Count 320 (150-375) k/mm3 MPV 11.4 H (7.4-10.4) fl Immature Gran % (Auto) 0.4 (0-0.5) % Neut % (Auto) 62.4 (45.5-73.1) % Lymph % (Auto) 28.2 (18.3-44.2) % Tillman % (Auto) 7.3 (2.6-8.5) % Eos % (Auto) 1.1 (0-4.4) % Baso % (Auto) 0.6 (0.2-1.2) % Lymph # (Auto) 2.31 (0.9-3.2) K/mm3 Tillman # (Auto) 0.6 (0.1-0.6) K/mm3 Eos # (Auto) 0.1 (0-0.3) K/mm3 Baso # (Auto) 0.1 (0.0-0.1) K/mm3 Abs Immat Gran (auto) 0.03 (0.00-0.031) K/mm3 Absolute Neuts (auto) 5.1 (1.3-6.7) K/mm3 Absolute Nucleated RBC 0.000 (0.0-0.012) K/mm3 Nucleated RBC % 0.0 (0.0-0.2) % Platelet Estimate Adequate (Adequate) Hypochromasia 1+ Anisocytosis 1+ Microcytosis 1+ (NORMAL) Schistocytes None seen Sodium 136 L (137-145) mmol/L Potassium 3.7 (3.4-5.0) mmol/L Chloride 105 (98-107) mmol/L Carbon Dioxide 26 (22-30) mmol/L Anion Gap 5 (4-12) mmol/L BUN 13 D (7-17) mg/dL Creatinine 0.80 (0.7-1.0) mg/dL Estim Creat Clear Calc 104 ml/min Estimated GFR > 60 (59 - ) Glucose 90 (65-110) mg/dL Calcium 9.2 (8.4-10.2) mg/dL Total Bilirubin 0.4 (0.2-1.3) mg/dL AST 26 (14-36) U/L ALT 28 (6-35) U/L Alkaline Phosphatase 74 (38-126) U/L Total Protein 9.0 H (6.3-8.2) g/dL Albumin 4.6 (3.5-5.1) g/dL Monoscreen Negative (Negative) Influenza A (RT-PCR) Negative (Negative) Influenza B (RT-PCR) Negative (Negative) RSV (RT-PCR) Negative (Negative) SARS-CoV-2 RNA (RT-PCR) Negative (Negative) Group A Strep (PCR) Not detected (Negative) <Jyotsna Ojeda PA-C - Last Filed: 11/04/24 23:55> Imaging Data Attestation: I personally reviewed and interpreted this imaging study as follows: < GEORGE Edwards Last Filed: 11/04/24 23:55> Radiologist's impression: ITS Impressions Chest X-Ray 11/04/24 16:13 IMPRESSION: No acute cardiopulmonary pathology. Soft Tissue Neck CT 11/04/24 16:44 IMPRESSION: 1. Soft tissue density in the nasopharyngeal area which may be adenoids. Clinical evaluation advised. 2. Enlarged tonsils. 3. Bilateral enlarged lymph nodes in the parapharyngeal and posterior triangles. 4. Slightly enlarged thyroid gland with hypodensity in the left lobe of the thyroid. <Jyotsna Ojeda PA-C - Last Filed: 11/04/24 23:55> Discharge Plan Discharge Clinical Impression: Acute tonsillitis Qualifiers: Pharyngitis/tonsillitis etiology: unspecified etiology Qualified Code(s): J 03.90 - Acute tonsillitis, unspecified <GEORGE Bennett Last Filed: 11/04/24 14:20> Patient Disposition: Home, Self-Care <GEORGE Bennett Last Filed: 11/04/24 14:20> Condition: Stable <GEORGE Bennett Last Filed: 11/04/24 14:20> Instructions: Antibiotic Form, Pharyngitis (ED), Upper Respiratory Infection (ED), Tonsillitis (ED) <GEORGE Bennett Last Filed: 11/04/24 14:20> Additional Instructions: Take steroids and antibiotics as prescribed. These antibiotics can sometimes cause GI upset. It is recommended you take an over the counter probiotic while on the antibiotics and continue this for 1-2 weeks after finishing the antibiotics. Follow-up with your primary care doctor and/or ENT for further evaluation if needed. Continue Tylenol and ibuprofen as needed for pain. Stay very well hydrated. You may continue [id number] cough and cold medicines as needed for symptom relief. Return to the ED if you experience worsening or severe symptoms, unable to keep down food or drink, difficulty breathing, persistent fevers, or any other symptoms of concern. <GEORGE Bennett Last Filed: 11/04/24 14:20> Patient Language: Slovak <GEORGE Bennett Last Filed: 11/04/24 14:20> Prescriptions: New methylprednisolone [Medrol (Reji)] 4 mg tablets,dose pack See Rx Instructions PO .COMPLEX Qty: 21 0RF Rx Instructions: orally per package directions clindamycin HCl 300 mg capsule 300 mg PO Q6H 10 Days Qty: 40 0RF No Action amoxicillin 500 mg tablet 1,000 mg PO DAILY 10 Days Qty: 20 0RF levonorgestrel-ethinyl estrad [Lutera (28)] 0.1-20 mg-mcg tablet 1 tablet PO DAILY Qty: 84 0RF <GEORGE Bennett Last Filed: 11/04/24 14:20> Follow-up/Referrals: Sonido Mims MD [Physician] - (ENT) PHYSICIAN,BIOLOGICAL LAB TECHNICIAN [Primary Care Provider] - <Hiren Candelaria PA-C - Last Filed: 11/04/24 14:20> Time of Disposition: 22:34 <Hiren Candelaria PA-C - Last Filed: 11/04/24 14:20> 22:34 <Jyotsna Ojeda PA-C - Last Filed: 11/04/24 23:55>
[2024-11-04 18:40] LABS: Basophils Absolute Auto 0.1 K/mm3 (0.0-0.1); Basophils Percent Auto 0.6 % (0.2-1.2); Eosinophils Absolute Auto 0.1 K/mm3 (0-0.3); Eosinophils Percent Auto 1.1 % (0-4.4); Hematocrit 30.7 % (37.0-47.0); Hemoglobin 9.9 g/dL (12.0-15.0); Immature Granulocyte Absolute 0.03 K/mm3 (0.00-0.031); Immature Granulocyte Percent A 0.4 % (0-0.5); Lymphocytes Absolute Auto 2.31 K/mm3 (0.9-3.2); Lymphocytes Percent Auto 28.2 % (18.3-44.2); Mean Corpuscular HGB Conc 32.2 g/dl (32-36); Mean Corpuscular Hemoglobin 22.7 pg (26-34); Mean Corpuscular Volume 70.4 fl (80-100); Mean Platelet Volume 11.4 fl (7.4-10.4); Monocytes Absolute Auto 0.6 K/mm3 (0.1-0.6); Monocytes Percent Auto 7.3 % (2.6-8.5); Neutrophils Absolute Auto 5.1 K/mm3 (1.3-6.7); Neutrophils Percent Auto 62.4 % (45.5-73.1); Platelet Count Result 320 k/mm3 (150-375); Red Blood Count 4.36 M/mm3 (4.2-5.4); White Blood Count 8.2 K/mm3 (4.5-10.0)
[2024-11-04 18:51] LABS: Alanine Aminotransferase 28 U/L (6-35); Albumin Level 4.6 g/dL (3.5-5.1); Alkaline Phosphatase 74 U/L (38-126); Anion Gap 5 mmol/L (4-12); Aspartate Amino Transferase 26 U/L (14-36); Bilirubin,Total 0.4 mg/dL (0.2-1.3); Blood Urea Nitrogen 13 mg/dL (7-17); Calcium 9.2 mg/dL (8.4-10.2); Carbon Dioxide 26 mmol/L (22-30); Chloride 105 mmol/L (98-107); Estimated CRCL calculation 104 ml/min; Estimated Glomerular Filt Rate > 60; Glucose 90 mg/dL (65-110); Potassium 3.7 mmol/L (3.4-5.0); Sodium 136 mmol/L (137-145)
[2024-11-04 18:59] LABS: Anisocytosis 1+; Hypochromasia 1+; Microcytosis 1+ (NORMAL); Platelet Estimate Adequate (Adequate); Schistocytes None Seen
[2024-11-04 19:00] LABS: Monoscreen Negative (Negative); Negative Monotest Control Negative (Negative); Positive Monotest Control Positive (Positive)
[2024-11-04 19:16] LABS: Strep Group A RT-PCR NOT DETECTED (Negative)
[2024-11-04 19:28] LABS: Influenza A QL RT-PCR Negative (Negative); Influenza B QL RT-PCR Negative (Negative); RSV RNA, RT-PCR Negative (Negative); SARS-CoV-2 RNA PCR Negative (Negative)
[2024-11-04] MEDS: dexAMETHasone SOD PHOS INJ 10 MG/ML 1 ML VIAL IV PUSH (22:30)
[2024-11-04] MEDS: SODIUM CHLORIDE 0.9% IV 1,000 ML 999 ML IV CONT (22:30)
[2024-11-04] MEDS: FLUCONAZOLE 150 MG TABLET PO (22:30)
[2024-11-04] MEDS: AMPICILLIN SULB 3 GM/NS 100 ML 3 GM/100 ML VIAL IVPB (22:30)
[2024-11-07 07:47] LABS: Estimated CRCL calculation 117 ml/min; Estimated Glomerular Filt Rate > 60
== END 2024-11-05 00:12 | disposition home or self-care (01) ==
PROVIDERS: Physician Assistant; Emergency Provider Physician Assistant
DX: J03.90 Acute tonsillitis, unspecified (principal); F17.290 Nicotine dependence, other tobacco product, uncomplicated; Z20.822 Contact with and (suspected) exposure to COVID-19
CPT/HCPCS: 36415; 70491; 71045; 80053; 82565; 85025; 86308; 87637; 87651; 96361; 96365; 96375; 99284; A9270; J0295; J1100; J7030; Q9967

== ENCOUNTER 2025-01-27 19:51 | Emergency (ER) | payer OTHER, SELFPAY ==
[2025-01-27 20:10] LABS: EDUAAPPEAR Clear; EDUABILI Negative (Negative); EDUABLOOD Negative (Negative); EDUACOLOR1 Yellow; EDUAGLUCOSE Negative (Negative); EDUAKETONE Negative (Negative); EDUALEUKO Trace (Negative); EDUANITRATE Negative (Negative); EDUAPROTEIN Trace (Negative); EDUASPGRAVITY 1.025; EDUAUROBILI 0.2
[2025-01-27 20:13] VITALS: BP 159/77; PULSE 87; RESP 16; TEMP 37.1; O2SAT 99
--- NOTE | 2025-01-27 20:15 | ED.FEMALEGU ---
HPI - Female Genitourinary General Chief complaint: Urogenital-Female Stated complaint: UTI/BV Time Seen by Provider: 01/27/25 20:15 Source: patient Mode of arrival: ambulatory Limitations: no limitations History of Present Illness HPI Narrative: Per is a 24-year-old female patient presenting to the clinic today with complaints of possible UTI/vaginal discharge x2 days. She reports she thought she may had a yeast infection and had use some [id number] medication without relief. States that it is not itching but it is white discharge with an odor. History of BV in the past and feels as though she may have BV again. Is also reporting some urinary frequency and urgency. Denies any burning with urination. Last menstrual period was 2 weeks ago. She has not been sexually active since November. No concern for STI or . Denies taking any recent antibiotics. No changes in soaps or detergents. Denies any back pain or abdominal pain. Related Data Allergies Allergy/AdvReac Type Severity Reaction Status Date / Time No Known Allergies Allergy Verified 01/27/25 19:58 Review of Systems Review of Systems: Pertinent positives per HPI. Patient denies any fever, chills, rash, headache, visual changes, dizziness, cough, runny nose, sore throat, shortness of breath, chest pain, palpitations, nausea, vomiting, diarrhea, constipation, abdominal pain PMFSH Past Medical History Medical History History of chlamydia Patient denies medical problems Surgical History Surgical History H/O section Family History Family History Other Cerebrovascular accident Diabetes mellitus Heart disease Hypertension Thyroid disorder Social History Social History Smoking status: Current every day smoker Tobacco type: e-cigarettes/vaping Alcohol intake: current Substance use: current Substance use type: marijuana Comments At the time of my signature, I reviewed and agree with the nursing past medical, surgical, social, and family history. There is no relevant family history pertinent to the patient complaint. Exam Narrative: General: Well-developed, morbidly obese, in no apparent distress. Head: Normocephalic, atraumatic. Cardio: Regular rate and rhythm, s1 and s2 normal, no murmur appreciated. Resp: Clear to auscultation bilaterally, no rhonchi, rales, wheezing or rubs. Abdomen: Soft, pliable, bowel sounds present in all quadrants, non-tender to palpation, no organomegly, no CVAT tenderness. : Deferred Course Course Emergency Course: Portions of this record may have been created with voice recognition software. Level of Care: Express Care Visit Vital Signs Vital signs: Vital Signs Temperature 37.1 C 01/27/25 20:13 Pulse Rate 87 01/27/25 20:13 Respiratory Rate 16 01/27/25 20:13 Blood Pressure 159/77 H 01/27/25 20:13 Pulse Oximetry 99 01/27/25 20:13 Oxygen Delivery Room Air 01/27/25 20:13 Temperature 37.1 C 01/27/25 20:13 Pulse Rate 87 01/27/25 20:13 Respiratory Rate 16 01/27/25 20:13 Blood Pressure 159/77 H 01/27/25 20:13 Pulse Oximetry 99 01/27/25 20:13 Oxygen Delivery Room Air 01/27/25 20:13 Vital signs reviewed MDM - Female Genitourinary MDM Narrative Medical decision making narrative: At the time of visit patient is resting comfortably on the exam table. Patient appears to be nontoxic. Labs: Urinalysis shows trace of leukocytes and protein. We will send urine for culture. Patient self swab for bacterial vaginosis-this was sent to lab Plan: I suspect patient has vaginal discharge/BV. Prescription for metronidazole was sent to the pharmacy. Supportive measures were discussed with the patient and they voiced understanding discharge instructions and agrees to treatment plan. Return precautions reviewed Differential Diagnosis Differential diagnosis: Likely urinary tract infection, bacterial vaginosis, trichomoniasis, cervicitis, ovarian cyst, vaginitis, ruptured ovarian cyst, cyst of Bartholin's gland and cystitis Lab Data Labs: Lab Results 01/27/25 01/27/25 Range/Units 20:00 20:07 POC Urine Color Yellow POC Urine Clarity Clear POC Urine pH 6.0 POC Ur Specif [place] 1.025 POC Urine Protein Trace (Negative) POC Ur Glucose (UA) Negative (Negative) POC Urine Ketones Negative (Negative) POC Urine Blood Negative (Negative) POC Urine Nitrite Negative (Negative) POC Urine Bilirubin Negative (Negative) POC Urine Urobilinogen 0.2 POC U Leukocyte Esteras Trace (Negative) Bact Vaginosis Panel Pending Discharge Plan Discharge Clinical Impression: Vaginal discharge, Bacterial vaginosis Patient Disposition: Home, Self-Care Condition: Stable Instructions: Antibiotic Form, Bacterial Vaginosis (ED), Vaginal Discharge (ED) Additional Instructions: Urinalysis positive for trace of leukocytes and trace of protein. We will send her urine for culture if this comes back positive we will contact him place you on appropriate antibiotics Take metronidazole as prescribed Avoid any sexual activity- includes oral, anal, or vaginal intercourse until you get results back and have completed any additional recommended treatment regimens. We will contact you if testing is positive and make sure your treatment was appropriate for the type of STI. If symptoms worsen after treatment recommend reevaluation with your PCP or Express care. Patient Language: [place] Prescriptions: New metronidazole 500 mg tablet 500 mg PO BID 7 Days Qty: 14 0RF Follow-up/Referrals: PHYSICIAN,FILM TESTS CHECKER [Primary Care Provider] - Time of Disposition: 20:17 Quality NIHSS Nursing Documentation ED NIHSS nursing documentation: reviewed/agree
[2025-01-30 15:28] LABS: Bacterial Vaginosis POSITIVE (NEGATIVE)
== END 2025-01-27 20:28 | disposition home or self-care (01) ==
PROVIDERS: Emergency Provider Nurse Practitioner Family
DX: N76.0 Acute vaginitis (principal); F17.290 Nicotine dependence, other tobacco product, uncomplicated
CPT/HCPCS: 81003; 81513; 87086; 99213; G0463